=== PATIENT | female | born 1985 | race Caucasian/White ===

== ENCOUNTER → 2017-03-29 | Outpatient (CLI) | payer BC ==
[~2017-03-29] MED LIST: MTR600X PO; PRENTAB26 PO
== END | disposition home or self-care (01) ==
LOC: C.PAPS 11:52
PROVIDERS: ATTEND Obstetrics & Gynecology
DX: Z01.419 Encounter for gynecological examination (general) (routine) without abnormal findings (principal); N87.1 Moderate cervical dysplasia

== ENCOUNTER → 2017-07-14 | Outpatient (CLI) | payer BC ==
--- NOTE | 2017-07-14 16:02 | MAMMOGRAPHY REPORT ---
UNILATERAL RIGHT DIGITAL DIAGNOSTIC MAMMOGRAM TOMOSYNTHESIS WITH CAD AND TARGETED RIGHT ULTRASOUND: 1 09/14/2016 CLINICAL HISTORY: 31-year-old woman presents with a 1-1/2 week history of a tiny BB-sized lump in the right breast. Initially she noticed it because of slight redness of the skin in this area. That chong s since resolved but she now feels a tiny mass in the right breast itself. No discharge from the mas s or nipple discharge. TECHNIQUE: Right breast tomosynthesis in addition to standard 2D mammography was performed. Current s ragini was also evaluated with a Computer Aided Detection (CAD) system. COMPARISON: No prior exams were available for comparison. BREAST COMPOSITION: The tissue of the right breast is extremely dense, which lowers the sensitivity of mammography. FINDINGS: A trying irregular skin fold marker overlies the 12:00 anterior right breast, denoting the palpable lump pointed out by the patient. There are a few benign round and coarse calcifications in the right breast. No obvious mass, architectural distortion or cluster of suspicious microcalcifica tions. On palpation there is a tiny 4 mm round firm mass in the 12:00 periareolar right breast. On ultrasou nd, there is a hypoechoic solid versus cystic nonvascular mass that appears to be with in the dermis, as the dermis appears focally thickened in the area of the mass. It measures approximately 5.6 x 2. 4 x 3.6 mm. No punctum identified extending to the skin surface. This most likely represents an epi dermal inclusion cyst as opposed to a subareolar abscess, as it appears contained to the dermis. How ever continued clinical follow-up is recommended with hot compresses and NSAIDs for pain relief. If the skin erythema returns or the mass increases, patient should return for repeat targeted ultrasound . Otherwise recommend follow-up at resolution in approximately 3 months. IMPRESSION: ACR-BI-RADS CATEGORY 3: PROBABLY BENIGN, TARGETED ULTRASOUND ACR-BI-RADS CATEGORY 3: PRO BABLY BENIGN 1. The small 5 mm palpable mass in the 12:00 periareolar right breast identified by the patient most likely represents an epidermal inclusion cyst, as it appears contained within the dermis on ultrasoun d. However, no punctum is seen extending to the skin surface for definitive characterization. Recom mend conservative management with hot compresses and NSAIDs and repeat targeted ultrasound of the rig ht breast in 3 months to ensure improvement and/or resolution. 2. Otherwise no mammographic evidence of malignancy in the right breast. These results and recommendations were discussed with the patient at the time of the exam. Approximately 10% of breast cancers are not detected with mammography. A negative mammographic report should not delay biopsy if a clinically suggestive mass is present. Mindi Lopez M.D. ay/:07/14/2017 12:34:07 Wood Cabinetmaker: Riri WOO(R)(Nafisa), [facility] letter sent: Follow Up Recommended 3 BI-RADS Code: ACR-BI-RADS Category 3: Probably Benign Ultrasound BI-RADS: ACR-BI-RADS Category 3: Pr obably Benign
== END | disposition home or self-care (01) ==
LOC: C.MAMM 10:30
PROVIDERS: ATTEND Physician Assistant
DX: N63.10 Unspecified lump in the right breast, unspecified quadrant (principal)

== ENCOUNTER → 2017-10-13 | Outpatient (CLI) | payer OTHER ==
--- NOTE | 2017-10-13 15:37 | MAMMOGRAPHY REPORT ---
ULTRASOUND OF RIGHT BREAST: 10/13/2017 CLINICAL HISTORY: Short interval follow-up of a palpable right breast lump which had the appearance o f an epidermal inclusion cyst on ultrasound. The patient cannot longer feel the palpable lump. She denies any new lumps or other complaints. COMPARISON: Comparison is made to exams dated: 07/14/2017 ultrasound and 07/14/2017 mammogram - [facility]. TECHNIQUE: Real-time targeted ultrasound of the right breast was performed. FINDINGS: Real-time, high-resolution targeted ultrasound was performed of the area of the previously palpable lump in the right 12:00 periareolar breast. The previously seen 6 x 2 x 4 mm hypoechoic int radermal mass at the site of the palpable lump in the right 12:00 periareolar breast is significantly decreased in size, with only a small residual faint hypoechoic lesion seen within the skin which eliot sures 3 x 1 x 3 mm. Findings are benign and most compatible with a resolving epidermal inclusion/rudy aceous cyst. IMPRESSION: ACR BI-RADS CATEGORY 2: BENIGN Significant interval decrease in size of the palpable intradermal mass within the right 12:00 periare olar breast. Given the interval resolution and given the intradermal location, the mass is benign an d compatible with a resolving epidermal inclusion/sebaceous cyst. There is no sonographic evidence o f malignancy. Recommend clinical follow-up. The patient was verbally notified of the results. Kelsey Michael M.D. /:10/13/2017 10:29:35 Towboat Captain: Kelsey Michael MD, [facility] letter sent: Normal 1/2 BI-RADS Code: ACR BI-RADS Category 2: Benign
== END | disposition home or self-care (01) ==
LOC: C.MAMM 10:04
PROVIDERS: ATTEND Physician Assistant
DX: N63.10 Unspecified lump in the right breast, unspecified quadrant (principal)

== ENCOUNTER 2017-11-27 15:12 | Emergency (ER) | payer OTHER ==
[~2017-11-27] VITALS: Ht 154.9 cm; Wt 56.4 kg
[2017-11-27 15:14] VITALS: TEMP 36.7; Ht 154.9 cm; Wt 56.4 kg
[2017-11-27] MEDS ORDERED: MULT-513 PO (15:55)
[2017-11-27] MEDS ORDERED: LIDOCAINE 1% BUFFERED INJ 5 ML VIAL INFIL ONE (15:59)
--- NOTE | 2017-11-27 16:03 | DIAGNOSTIC IMAGING REPORT ---
L TOE(S) MIN 2 VIEWS CLINICAL HISTORY: L 5th toe injury/deformity trauma. Pain. COMPARISON: None. DISCUSSION: Oblique fracture midshaft proximal phalanx fifth toe. Mild soft tissue edema. No evidence of dislocation. IMPRESSION: Oblique nondisplaced fracture proximal phalanx fifth toe. Soft tissue edema. The above report was generated using voice recognition software. It may contain grammatical, syntax or spelling errors. Electronically signed by: Jamar Barragan M.D. 11/27/2017 4:01 PM Dictated Date/Time: 11/27/2017 4:01 PM
--- NOTE | 2017-11-27 16:22 | EMERGENCY ROOM VISIT NOTE ---
History First contact with patient: 15:17 Chief Complaint: TOE PAIN, INJURY Stated Complaint: PINKIE TOE INJURY History of Present Illness The patient is a 32 year old female who presents to the Emergency Room with complaints of left fifth toe pain and injury after catching her toe while stepping over a stool. The patient denies any other injuries from this incident , and rates her discomfort a 4 out of 10. Review of Systems 10 system review was performed and was negative except for pertinent positives and negatives as indicated in history of present illness Past Medical/Surgical History Medical Problems: (1) No significant past medical history Surgical Problems: (1) History of delivery Social History Smoking Status: Never Smoker Alcohol Use: none Marital Status: Housing Status: lives with family Occupation Status: employed Current/Historical Medications Scheduled Multivitamins/Minerals (Mvi With Minerals), 1 TAB PO DAILY Physical Exam Vital Signs Date Time Temp Pulse Resp B/P (MAP) Pulse Ox O2 Delivery O2 Flow Rate FiO2 11/27/17 15:14 36.7 79 20 142/84 98 Room Air Physical Exam CONSTITUTIONAL: Healthy and well nourished. Alert and oriented X 3 with positive affect. HEENT: Normocephalic, atraumatic. Pupils equal, round and reactive. MUSCULOSKELETAL: Examination of the left fifth toe shows a mild lateral formerly. Otherwise there is no open wounds, erythema, ecchymosis or lacerations. Capillary refill is less than 2 seconds. INTEGUMENTARY: No rash or other significant dermatologic conditions noted. NEUROLOGIC: Left fifth toe is sensory intact. Medical Decision & Procedures ER Provider Diagnostic Interpretation: My interpretation of left fifth toe x-rays shows an oblique fracture of the proximal phalanx. No dislocations noted. Radiologist report is as follows: L TOE(S) MIN 2 VIEWS CLINICAL HISTORY: L 5th toe injury/deformity trauma. Pain. COMPARISON: None. DISCUSSION: Oblique fracture midshaft proximal phalanx fifth toe. Mild soft tissue edema. No evidence of dislocation. IMPRESSION: Oblique nondisplaced fracture proximal phalanx fifth toe. Soft tissue edema. Medications Administered Medications (Trade) Dose Ordered Sig/Neftali Route Start Time Stop Time Status Last Admin Dose Admin Lidocaine HCl (Buffered Lidocaine 1% Inj) 20 ml STK-MED ONCE INFIL 11/27/17 15:59 11/27/17 16:00 DC 11/27/17 15:59 20 ML Procedure Fracture reduction was performed under digital block anesthesia after receiving verbal consent from the patient. Using buffered 1% lidocaine without epinephrine, good digital block anesthesia was administered. Closed reduction was then performed with success. Marco taping was applied. The patient tolerated the procedure well. ED Course Patient history and physical exam were performed. Nurse's notes were reviewed. Vital signs were reviewed and were normal. X-rays of the left fifth toe shows an oblique fracture without any dislocations. Reduction was performed under digital block anesthesia. Marco taping was applied. The patient was encouraged to follow-up with [facility] for further evaluation and management. She was encouraged to continue intermittently applying ice to the foot and elevate for swelling/pain. Ibuprofen or Tylenol if needed for additional pain relief. The patient was happy with plan of care, voiced understanding of all discharge instructions, and denied any pain at the conclusion of exam. Medical Decision Medication Reconcilliation Current Medication List: was personally reviewed by me Blood Pressure Screening Patient's blood pressure: Normal blood pressure Impression Primary Impression: Fracture of fifth toe, left, closed Departure Information Referrals No Doctor, Assigned (PCP) Patient Instructions My [facility] Problem Qualifiers Primary Impression: Fracture of fifth toe, left, closed Encounter type: initial encounter Qualified Codes: S92.502A - Displaced unspecified fracture of left lesser toe(s), initial encounter for closed fracture
[2017-11-27 16:27] VITALS: BP 121/81; PULSE 70; O2SAT 98
== END 2017-11-27 16:28 | disposition home or self-care (01) ==
LOC: C.EDB 15:13 → C.EDD 16:28
DX: S92.502A Displaced unspecified fracture of left lesser toe(s), initial encounter for closed fracture (principal); W22.8XXA Striking against or struck by other objects, initial encounter

== ENCOUNTER → 2017-11-30 | Outpatient (CLI) | payer OTHER ==
[~2017-11-30] MED LIST changes: -MTR600X PO; +MULT-513 PO; -PRENTAB26 PO
--- NOTE | 2017-11-30 14:51 | DIAGNOSTIC IMAGING REPORT ---
L TOE(S) MIN 2 VIEWS CLINICAL HISTORY: 32 years-old Female presenting with LEFT 5TH TOE FX. TECHNIQUE: Frontal, oblique, and lateral views of the left fifth toe were obtained. COMPARISON: 11/27/2017. FINDINGS: Redemonstration of the obliquely oriented fracture through the diaphysis of the proximal phalanx of the fifth toe. No significant angulation or displacement. The fracture does not appear to extend into the fifth metatarsophalangeal joint. Symphalangism of the middle and distal phalanges of the fifth toe. IMPRESSION: No significant change in alignment of the obliquely oriented diaphyseal fracture of the proximal phalanx of the fifth toe. Electronically signed by: Mariano Herman M.D. 11/30/2017 2:49 PM Dictated Date/Time: 11/30/2017 2:45 PM
== END | disposition home or self-care (01) ==
LOC: C.RDSM 15:04
PROVIDERS: ATTEND Internal Medicine
DX: S92.912A Unspecified fracture of left toe(s), initial encounter for closed fracture (principal); X58.XXXA Exposure to other specified factors, initial encounter